=== PATIENT | female | born 1990 | race Caucasian/White ===

== ENCOUNTER → 2021-09-18 13:12 | Outpatient (CLI) | payer OTHER, SELFPAY ==
--- NOTE | 2021-09-18 | DI.MRI.S_ITS ---
PROCEDURE: MR KNEE RT WO CON INDICATIONS: Other tear of medial meniscus, right knee TECHNIQUE: Noncontrast sagittal PD fast spin echo and T2 fast spin echo with fat saturation, sagittal 3-D FLASH with fat saturation; coronal T1 spin echo and PD fast spin echo with fat saturation, and axial PD fast spin echo with fat saturation through the knee. COMPARISON: None. FINDINGS: Image quality: Excellent. Menisci: There is a ramp tear in the peripheral aspect of the posterior horn of the medial meniscus (series 7 image 27; series 10, image 22). The lateral meniscus demonstrates normal morphology and internal signal. The meniscal root ligaments appear intact. Cruciate ligaments: The anterior and posterior cruciate ligaments appear intact. Medial structures: The medial collateral ligament appears intact. The semimembranosus tendon insertions and meniscocapsular junction appear intact. Visualized portions of the pes anserinus tendons appear normal. No abnormal bursal fluid. Lateral structures: The lateral collateral ligament and the biceps femoris tendon appear intact. The popliteus tendon appears normal. Iliotibial band appears normal. Anterior structures: The quadriceps and patellar tendons appear intact. Patellar alignment is normal. No femoral trochlear dysplasia or ventral trochlear prominence. Mild edema in the superior lateral aspect of infrapatellar fat pad. Bones and cartilage: No fractures or dislocation. There is bone marrow edema in the inferior aspect of patella. There is tricompartmental cartilage fibrillation with relatively preserved cartilage thickness. Joint space: There is small knee joint effusion. There is a small Griggs's cyst. Normal appearing synovial plicae are incidentally noted. IMPRESSION: 1. Ramp tear of peripheral aspect of the posterior horn of the medial meniscus. 2. Mild edema in the superior lateral aspect of the infrapatellar fat pad suggesting infrapatellar fat pad impingement. 3. There is edema in the inferior aspect of patella consistent with reactive edema or bone contusion. 4. Tricompartmental cartilage fibrillation. 5. A small Griggs's cyst. 6. Small knee joint effusion. Dictated by: Alf Mckenzie M.D. on 09/20/2021 at 10:34 Approved by: Alf Mckenzie M.D. on 09/20/2021 at 10:46
== END ==
PROVIDERS: PCP Physician Assistant Medical; Referring Provider Orthopaedic Surgery; Visit Provider Orthopaedic Surgery
DX: S83.241A Other tear of medial meniscus, current injury, right knee, initial encounter (principal); M71.21 Synovial cyst of popliteal space [Baker], right knee; M25.461 Effusion, right knee
CPT/HCPCS: 73721